=== PATIENT | female | born 1965 | race Caucasian/White ===

== ENCOUNTER → 2019-07-14 11:59 | Outpatient (CLI) | payer OTHER, SELFPAY ==
--- NOTE | 2019-07-14 | DI.MG.S_ITS ---
BILATERAL DIGITAL SCREENING MAMMOGRAM 3D/2D WITH CAD: 07/14/2019 CLINICAL: Routine screening. Family history of breast cancer. Comparison is made to exams dated: 04/15/2018 mammogram, 01/13/2017 mammogram, and 12/18/2015 mammogram - [facility]. The tissue of both breasts is heterogeneously dense. This may lower the sensitivity of mammography. Current study was also evaluated with a Computer Aided Detection (CAD) system. There are grouped calcifications in the superior lateral right breast at posterior depth that are stable to prior comparison exams dating back to 12/18/15, consistent with benignity. No significant masses, calcifications, or other findings are seen in either breast. There has been no significant interval change. IMPRESSION: There is no mammographic evidence of malignancy. A 1 year screening mammogram is recommended. This exam was interpreted at Station ID: [id number]. NOTE: For mammograms, a report in lay terms will be sent to the patient. Approximately 15% of breast malignancies will not be visualized mammographically. In the management of a palpable breast mass, a negative mammogram must not discourage biopsy of a clinically suspicious lesion. Electronically Signed By: Urbnao Zaman M.D. ecl/:07/14/2019 17:15:54 letter sent: Normal Exam ACR BI-RADS Category 2: Benign Finding(s) 3342F
== END ==
PROVIDERS: Visit Provider Naturopath
DX: Z12.31 Encounter for screening mammogram for malignant neoplasm of breast (principal); Z80.3 Family history of malignant neoplasm of breast
CPT/HCPCS: 77063; 77067

== ENCOUNTER → 2019-07-20 09:40 | Outpatient (CLI) | payer OTHER, SELFPAY ==
[2019-07-20 10:29] LABS: Add Manual Diff / Slide Review NO; Basophils Absolute Auto 100 /uL (0-100); Basophils Percent Auto 0.8 % (0-2); Eosinophils Absolute Auto 200 /uL (0-450); Eosinophils Percent Auto 3.5 % (2-4); Hematocrit 42.1 % (36-46); Hemoglobin 14.3 g/dL (12.0-16.0); Lymphocytes Absolute Auto 2400 /uL (1100-4500); Mean Corpuscular Hemoglobin 30.9 PG (26-34); Mean Corpuscular Volume 90.7 fL (80-100); Monocytes Absolute Auto 600 /uL (0-900); Monocytes Percent Auto 8.3 % (3-14); Neutrophils Absolute Auto 3700 /uL (1500-7000); Neutrophils Percent Auto 52.4 % (50-75); Platelet Count 372 X10^3/uL (150-400); Red Blood Cell Count 4.64 X10^6/uL (4.0-5.2); Red Cell Distribution Width 13.3 % (11.6-14.8)
[2019-07-20 11:01] LABS: Alanine Aminotransferase 14 IU/L (9-52); Albumin 4.4 g/dL (3.5-5.0); Albumin Globulin Ratio 1.6 (1.0-2.8); Alkaline Phosphatase 45 U/L (38-126); Aspartate Aminotransferase 31 IU/L (14-36); BUN Creatinine Ratio 18.3 (6-22); Bilirubin Total 0.6 mg/dL (0.2-1.3); Blood Urea Nitrogen 11 mg/dL (7-17); Calcium 9.5 mg/dL (8.4-10.2); Carbon Dioxide 28 mmol/L (22-32); Chloride 99 mmol/L (98-107); Cholesterol 236 mg/dL (140-199); Estimated Glomerular Filt Rate > 60.0 mL/min (>60); Globulin 2.7 g/dL (1.7-4.1); Glucose 79 mg/dL (70-100); HDL Cholesterol 85 mg/dL (40-60); HEMOLYSIS < 15 (0-50); LDL Cholesterol Calculated 137 mg/dL (<100); Sodium 133 mmol/L (137-145); Total Protein 7.1 g/dL (6.3-8.2); Triglycerides 70 mg/dL (35-150)
== END ==
PROVIDERS: Visit Provider Naturopath
DX: Z00.00 Encounter for general adult medical examination without abnormal findings (principal)
CPT/HCPCS: 80053; 80061; 85025

== ENCOUNTER → 2020-07-19 09:50 | Outpatient (CLI) | payer OTHER, SELFPAY ==
--- NOTE | 2020-07-19 | DI.MG.S_ITS ---
BILATERAL DIGITAL SCREENING MAMMOGRAM 3D/2D WITH CAD: 07/19/2020 CLINICAL: Routine screening. Family history of breast cancer. Comparison is made to exams dated: 07/14/2019 mammogram - [facility], 04/15/2018 mammogram, and 01/13/2017 mammogram - [facility]. The tissue of both breasts is heterogeneously dense. This may lower the sensitivity of mammography. Current study was also evaluated with a Computer Aided Detection (CAD) system. There is a focal asymmetry in the right breast at 12 o'clock posterior depth. There is a focal asymmetry in the left breast at 7 o'clock posterior depth. There also is a focal asymmetry in the left breast at 12 o'clock middle depth. No other significant masses or calcifications are seen in either breast. IMPRESSION: INCOMPLETE: NEEDS ADDITIONAL IMAGING EVALUATION The focal asymmetry in the right breast at 12 o'clock posterior depth is indeterminate. Additional views with possible ultrasound are recommended. The focal asymmetry in the left breast at 7 o'clock posterior depth is indeterminate. Additional views with possible ultrasound are recommended. The focal asymmetry in the left breast at 12 o'clock middle depth is indeterminate. Additional views with possible ultrasound are recommended. This exam was interpreted at Station ID: [id number]. NOTE: For mammograms, a report in lay terms will be sent to the patient. Approximately 15% of breast malignancies will not be visualized mammographically. In the management of a palpable breast mass, a negative mammogram must not discourage biopsy of a clinically suspicious lesion. Electronically Signed By: Natacha gallo/[email or web address]:07/19/2020 16:44:29 letter sent: Additional Imaging Needed ACR BI-RADS Category 0: Incomplete 3340F
[2020-07-19 12:10] LABS: Add Manual Diff / Slide Review NO; Basophils Absolute Auto 100 /uL (0-100); Basophils Percent Auto 0.9 % (0-2); Eosinophils Absolute Auto 200 /uL (0-450); Eosinophils Percent Auto 3.2 % (2-4); Hematocrit 40.5 % (36-46); Hemoglobin 13.8 g/dL (12.0-16.0); Lymphocytes Absolute Auto 2100 /uL (1100-4500); Lymphocytes Percent Auto 33.1 % (25-40); Mean Corpuscular HGB Conc 34.1 % (30-36); Mean Corpuscular Hemoglobin 30.7 PG (26-34); Monocytes Absolute Auto 500 /uL (0-900); Monocytes Percent Auto 7.4 % (3-14); Neutrophils Absolute Auto 3500 /uL (1500-7000); Neutrophils Percent Auto 55.4 % (50-75); Platelet Count 317 X10^3/uL (150-400); Red Cell Distribution Width 13.4 % (11.6-14.8); White Blood Cell Count 6.3 X10^3/uL (4.5-11.0)
[2020-07-19 12:20] LABS: Alanine Aminotransferase 15 IU/L (<35); Albumin 4.2 g/dL (3.5-5.0); Albumin Globulin Ratio 1.4 (1.0-2.8); Alkaline Phosphatase 54 U/L (38-126); Aspartate Aminotransferase 31 IU/L (14-36); BUN Creatinine Ratio 19.7 (6-22); Bilirubin Total 0.5 mg/dL (0.2-1.3); Blood Urea Nitrogen 12 mg/dL (7-17); Calcium 9.2 mg/dL (8.4-10.2); Carbon Dioxide 31 mmol/L (22-32); Chloride 102 mmol/L (98-107); Cholesterol 244 mg/dL (140-199); Estimated Glomerular Filt Rate > 60.0 mL/min (>60); Globulin 2.9 g/dL (1.7-4.1); Glucose 80 mg/dL (70-100); HDL Cholesterol 84 mg/dL (40-60); HEMOLYSIS < 15 (0-50); LDL Cholesterol Calculated 147 mg/dL (<100); Potassium 3.8 mmol/L (3.4-5.1); Sodium 136 mmol/L (137-145); Total Protein 7.1 g/dL (6.3-8.2); Triglycerides 66 mg/dL (35-150)
== END ==
PROVIDERS: PCP Naturopath; Referring Provider Naturopath; Visit Provider Naturopath
DX: Z12.31 Encounter for screening mammogram for malignant neoplasm of breast (principal); Z80.3 Family history of malignant neoplasm of breast; E78.00 Pure hypercholesterolemia, unspecified
CPT/HCPCS: 36415; 77063; 77067; 80053; 80061; 85025

== ENCOUNTER → 2022-05-16 08:27 | Outpatient (CLI) | payer OTHER, SELFPAY ==
[2022-05-16 09:45] LABS: Add Manual Diff / Slide Review NO; Basophils Absolute Auto 100 /uL (0-100); Basophils Percent Auto 1.2 % (0-2); Eosinophils Absolute Auto 400 /uL (0-450); Eosinophils Percent Auto 6.7 % (2-4); Hematocrit 40.5 % (36-46); Hemoglobin 14.1 g/dL (12.0-16.0); Lymphocytes Absolute Auto 1900 /uL (1100-4500); Mean Corpuscular HGB Conc 34.8 % (30-36); Mean Corpuscular Hemoglobin 31.5 PG (26-34); Mean Corpuscular Volume 90.6 fL (80-100); Monocytes Absolute Auto 600 /uL (0-900); Monocytes Percent Auto 8.9 % (3-14); Neutrophils Absolute Auto 3400 /uL (1500-7000); Neutrophils Percent Auto 53.2 % (50-75); Platelet Count 342 X10^3/uL (150-400); Red Blood Cell Count 4.47 X10^6/uL (4.0-5.2); Red Cell Distribution Width 13.5 % (11.6-14.8); White Blood Cell Count 6.3 X10^3/uL (4.5-11.0)
[2022-05-16 10:23] LABS: Alanine Aminotransferase 11 IU/L (<35); Albumin 4.4 g/dL (3.5-5.0); Albumin Globulin Ratio 1.8 (1.0-2.8); Alkaline Phosphatase 60 U/L (38-126); Aspartate Aminotransferase 27 IU/L (14-36); BUN Creatinine Ratio 17.9 (6-22); Bilirubin Total 0.4 mg/dL (0.2-1.3); Blood Urea Nitrogen 10 mg/dL (7-17); Calcium 9.4 mg/dL (8.4-10.2); Carbon Dioxide 30 mmol/L (22-32); Chloride 104 mmol/L (98-107); Cholesterol 200 mg/dL (140-199); Estimated Glomerular Filt Rate > 60 mL/min (>60); Globulin 2.5 g/dL (1.7-4.1); Glucose 81 mg/dL (70-100); HDL Cholesterol 72 mg/dL (40-60); HEMOLYSIS < 15 (0-50); LDL Cholesterol Calculated 112 mg/dL (<100); Potassium 4.8 mmol/L (3.4-5.1); Sodium 138 mmol/L (137-145); Total Protein 6.9 g/dL (6.3-8.2); Triglycerides 81 mg/dL (35-150)
== END ==
PROVIDERS: PCP Naturopath; Referring Provider Naturopath; Visit Provider Naturopath
DX: Z00.00 Encounter for general adult medical examination without abnormal findings (principal)
CPT/HCPCS: 36415; 80053; 80061; 85025

== ENCOUNTER → 2023-01-24 09:37 | Outpatient (CLI) | payer OTHER, SELFPAY | PROVIDERS: PCP Naturopath; Referring Provider Naturopath; Visit Provider Naturopath | DX: A09 Infectious gastroenteritis and colitis, unspecified (principal) | CPT/HCPCS: 87045; 87177; 87899 ==

== ENCOUNTER → 2023-02-13 09:48 | Outpatient (CLI) | payer OTHER, SELFPAY | PROVIDERS: PCP Naturopath; Referring Provider Naturopath; Visit Provider Naturopath | DX: A09 Infectious gastroenteritis and colitis, unspecified (principal) | CPT/HCPCS: 87045; 87329; 87899 ==

== ENCOUNTER 2023-10-03 18:22 | Emergency (ER) | payer OTHER, SELFPAY ==
[2023-10-03 18:32] VITALS: PULSE 106; RESP 24; O2SAT 99
[2023-10-03 18:35] VITALS: BP 141/85; PULSE 113; RESP 18; TEMP 36.9; O2SAT 98; BMI 22.3
--- NOTE | 2023-10-03 18:40 | DI.RAD.S_ITS ---
PROCEDURE: XR CHEST 1V INDICATIONS: chest pain TECHNIQUE: One view of the chest was acquired. COMPARISON: None. FINDINGS: Surgical changes and devices: None. Lungs and pleura: Left retrocardiac infiltrate and blunting of the left costophrenic angle. No pleural effusions or pneumothorax. Mediastinum: Mediastinal contours appear normal. Heart size is normal. Bones and chest wall: No suspicious bony lesions. Overlying soft tissues appear unremarkable. IMPRESSION: Left retrocardiac infiltrate. Dictated by: Chad Ann M.D. on 10/03/2023 at 19:28 Approved by: Chad Ann M.D. on 10/03/2023 at 19:31
[2023-10-03 19:00] VITALS: PULSE 96; RESP 28; O2SAT 99
[2023-10-03 19:08] LABS: Basophils Absolute Auto 100 /uL (0-100); Basophils Percent Auto 0.8 % (0-2); Eosinophils Absolute Auto 0 /uL (0-450); Eosinophils Percent Auto 0.3 % (2-4); Hematocrit 34.9 % (36-46); Hemoglobin 11.9 g/dL (12.0-16.0); Lymphocytes Absolute Auto 2000 /uL (1100-4500); Lymphocytes Percent Auto 13.5 % (25-40); Mean Corpuscular HGB Conc 34.2 % (30-36); Mean Corpuscular Volume 84.7 fL (80-100); Monocytes Absolute Auto 1400 /uL (0-900); Monocytes Percent Auto 9.6 % (3-14); Neutrophils Absolute Auto 10900 /uL (1500-7000); Neutrophils Percent Auto 75.8 % (50-75); Red Blood Cell Count 4.12 X10^6/uL (4.0-5.2); Red Cell Distribution Width 14.4 % (11.6-14.8); White Blood Cell Count 14.5 X10^3/uL (4.5-11.0)
[2023-10-03 19:14] LABS: Add Manual Diff / Slide Review SLIDE REVIEW; INR 1.2 (0.9-1.3); Prothrombin Time 13.4 SECONDS (9.4-12.5)
[2023-10-03 19:16] LABS: PTT Partial Thromboplastin Tim 25 SECONDS (25.1-36.5)
[2023-10-03 19:19] LABS: Alanine Aminotransferase 25 IU/L (<35); Albumin 3.9 g/dL (3.5-5.0); Albumin Globulin Ratio 1.1 (1.0-2.8); Alkaline Phosphatase 58 U/L (38-126); Aspartate Aminotransferase 35 IU/L (14-36); BUN Creatinine Ratio 10.5 (6-22); Bilirubin Total 0.7 mg/dL (0.2-1.3); Blood Urea Nitrogen 6 mg/dL (7-17); Calcium 9.2 mg/dL (8.4-10.2); Carbon Dioxide 26 mmol/L (22-32); Chloride 96 mmol/L (98-107); Creatine Kinase 51 U/L (30-135); Estimated Glomerular Filt Rate > 60 mL/min (>60); Globulin 3.5 g/dL (1.7-4.1); Glucose 135 mg/dL (70-100); HEMOLYSIS 29 (0-50); Lipase 32 U/L (23-300); Magnesium 1.9 mg/dL (1.6-2.3); Potassium 4.3 mmol/L (3.4-5.1); Sodium 129 mmol/L (137-145); Total Protein 7.4 g/dL (6.3-8.2)
[2023-10-03 19:23] LABS: Influenza A - CEPHEID Flu A NEGATIVE (NEGATIVE); Influenza B - CEPHEID Flu B NEGATIVE (NEGATIVE); Respiratory Syncytial Virus Negative (Negative)
[2023-10-03 19:25] LABS: COVID-19 CEPHEID 4-PLEX PCR POSITIVE (Negative)
[2023-10-03 19:26] LABS: D Dimer 1298 ng/ml (<500)
[2023-10-03 19:30] VITALS: PULSE 106; RESP 32; O2SAT 99
[2023-10-03 19:30] LABS: Troponin I < 0.012 ng/mL (0.01-0.034)
[2023-10-03 19:33] VITALS: BP 140/87; PULSE 100; RESP 32; O2SAT 99
[2023-10-03 19:34] LABS: Platelet Count 348 X10^3/uL (150-400)
[2023-10-03 19:35] LABS: RBC Morphology Normal Morphology
--- NOTE | 2023-10-03 19:58 | ED_ITS ---
HPI - General Adult General Chief complaint: Upper Respiratory Symptoms Stated complaint: Sent by [facility], [place] to take breath Time Seen by Provider: 10/03/23 18:40 Source: patient Mode of arrival: Ambulatory History of Present Illness HPI narrative: 58-year-old woman presents after developing a temperature and slight dyspnea over the last 48 hours. Her has also been feeling unwell. She does not describe a cough. She notes a headache and some neck pain but not complaining of significant nasal fullness. She is not having chest pain or palpitations, no abdominal pain nausea or vomiting. No lower extremity edema Related Data Previous Rx's Medication Instructions Recorded mupirocin 2 % topical ointment 1 applic topical BID #22 grams 04/13/22 azithromycin 250 mg tablet See Rx Instructions PO .COMPLEX #6 10/03/23 tabs Allergies Allergy/AdvReac Type Severity Reaction Status Date / Time No Known Drug Allergies Allergy Verified 10/03/23 18:35 Review of Systems Review of Systems Narrative: Pertinent positive and negative findings as per HPI Patient History Social History Smoking Status: Never smoker Smoking Status: Never smoker alcohol intake frequency: holidays/special occasions only Substance Use Type: does not use Exam Initial Vital Signs Initial Vital Signs: Vital Signs Pulse Rate 106 H 10/03/23 18:32 Respiratory Rate 24 10/03/23 18:32 Pulse Oximetry 99 10/03/23 18:32 General: Healthy appearing, in no acute distress. Able to give a complete and coherent history. Well-nourished well-developed HEENT: Moist mucous membranes, normal sclera with reactive pupils, Neck: No JVD, no cervical adenopathy Respiratory: Lungs are clear to auscultation, no wheezing no rales no rhonchi. Full and symmetrical air movement Cardiac: Regular rate and rhythm no murmurs no bruits Abdomen: Soft, nontender, good bowel tones, no flank pain Skin: Warm and dry, no rashes Neurologic: Grossly neurologically intact with no obvious asymmetries or abnormalities Psych: Cooperative, appropriate insight and affect Course Orders Ordered: ED Orders 10/03/23 18:30 Covid-19 + FLU A/B + RSV - PCR Stat 10/03/23 18:40 XR chest 1V Stat EKG-12 Lead Stat 10/03/23 18:45 Complete Blood Count AUTO DIFF Stat Comprehensive Metabolic Panel Stat D Dimer Stat Lipase Stat Magnesium Stat PTT Partial Thromboplastin Naresh Stat Prothrombin Time INR Stat Troponin & CK Cardiac Panel Stat Vital Signs Vital signs: Vital Signs - 8 hr 10/03/23 18:32 10/03/23 18:35 10/03/23 19:00 Temperature 98.5 F Pulse Rate 106 H 113 H 96 H Respiratory Rate 24 18 28 H Blood Pressure 141/85 H Pulse Oximetry 99 98 99 Oxygen Delivery Method Room Air 10/03/23 19:30 10/03/23 19:33 10/03/23 19:33 Temperature Pulse Rate 106 H 100 H Respiratory Rate 32 H 32 H Blood Pressure 140/87 Pulse Oximetry 99 99 Oxygen Delivery Method Room Air Medical Decision Making Lab Data 10/03/23 18:45 10/03/23 18:45 Labs: Lab Results 10/03/23 10/03/23 Range/Units 18:30 18:45 WBC 14.5 H (4.5-11.0) X10^3/uL RBC 4.12 (4.0-5.2) X10^6/uL Hgb 11.9 L (12.0-16.0) g/dL Hct 34.9 L (36-46) % MCV 84.7 (80-100) fL MCH 29.0 (26-34) PG MCHC 34.2 (30-36) % RDW 14.4 (11.6-14.8) % Plt Count 348 (150-400) X10^3/uL Neut % (Auto) 75.8 H (50-75) % Lymph % (Auto) 13.5 L (25-40) % [place] % (Auto) 9.6 (3-14) % Eos % (Auto) 0.3 L (2-4) % Baso % (Auto) 0.8 (0-2) % Neut # (Auto) 73256 H (0285-6665) /uL Lymph # (Auto) 2000 (5742-1841) /uL [place] # (Auto) 1400 H (0-900) /uL Eos # (Auto) 0 (0-450) /uL Baso # (Auto) 100 (0-100) /uL Clumped Platelets RBC Morphology Normal morphology PT 13.4 H (9.4-12.5) SECONDS INR 1.2 (0.9-1.3) APTT 25 L (25.1-36.5) SECONDS D-Dimer 1298 H (<500) ng/ml Sodium 129 L (137-145) mmol/L Potassium 4.3 (3.4-5.1) mmol/L Chloride 96 L (98-107) mmol/L Carbon Dioxide 26 (22-32) mmol/L BUN 6 L (7-17) mg/dL Creatinine 0.57 (0.52-1.04) mg/dL Estimated GFR > 60 (>60) mL/min BUN/Creatinine Ratio 10.5 (6-22) Glucose 135 H (70-100) mg/dL Calcium 9.2 (8.4-10.2) mg/dL Magnesium 1.9 (1.6-2.3) mg/dL Total Bilirubin 0.7 (0.2-1.3) mg/dL AST 35 (14-36) IU/L ALT 25 (<35) IU/L Alkaline Phosphatase 58 (38-126) U/L Total Creatine Kinase 51 (30-135) U/L Troponin I < 0.012 (0.01-0.034) ng/mL Total Protein 7.4 (6.3-8.2) g/dL Albumin 3.9 (3.5-5.0) g/dL Globulin 3.5 (1.7-4.1) g/dL Albumin/Globulin Ratio 1.1 (1.0-2.8) Lipase 32 (23-300) U/L SARS-CoV-2 (PCR) Positive H (Negative) Influenza A (RT-PCR) Flu a negative (NEGATIVE) Influenza B (RT-PCR) Flu b negative (NEGATIVE) RSV (PCR) Negative (Negative) MDM Narrative Medical decision making narrative: CC: Fever and dyspnea for 48 hours Data collected from: patient Differential considered: Viral syndrome, pneumonia, pulmonary embolism, acute coronary syndrome Exam documented above, pertinent findings include: Exam is entirely benign. There were initially some diminished breath sounds on the right base that cleared with deep breathing. Lab Test results independently reviewed as above. Pertinent findings: CBC demonstrates mild leukocytosis at 11.9 without significant left shift Chemistries show hyponatremia at 1:29 a.m. with normal renal function liver studies are unremarkable Troponin is undetectable COVID test is positive Independently reviewed EKG: Sinus tachycardia at a rate of 103. Normal intervals, normal axis Imaging studies independently reviewed: Chest x-ray shows a left retrocardiac infiltrate. I am not appreciating clinical correlation when auscultating lungs Discussion: 58-year-old woman with fever and dyspnea for 48 hours. COVID test is positive. She is mildly tachypneic heart rate is at 100, she is not currently febrile. Exam is reassuring. Labs are equally reassuring. With the chest x-ray I suspect that the retrocardiac infiltrate is more atelectasis. We did discuss the findings on chest x-ray and likelihood that this is not a bacterial infiltrate. At this point we will treat this as viral and are related to COVID with symptomatic management and plenty of rest. Reviewed indications for beginning antibiotics including persistent fevers in the 102-103 range and cough with productive sputum. At this point without cough I do not think that antibiotics are appropriate. 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 She will be given a prescription, written, of azithromycin to use should she develop a productive cough or increasing fevers. She will otherwise not be filling the prescription. Questions are answered she is safe for discharge Discharge Plan Departure Patient Disposition: Home Clinical Impression: COVID-19 Instructions: COVID-19 Activity Restrictions/Additional Instructions: Thank you for coming in today You do have COVID and that explains the majority of your symptoms. Unfortunately, this simply needs to run its course and requires ibuprofen and Tylenol for headaches and fevers, cough medicine if you do begin coughing and plenty of rest. On your chest x-ray in the left base there were some minor abnormalities that I suspect are your lungs not being completely expanded as you have been taking deep breaths. The possibility of pneumonia is there however without a productive cough a bacterial pneumonia is far less likely. If this is a bacterial pneumonia I would expect you to have high fevers in the 102-103 range over the next couple of days and develop a productive cough. Should that happen, please feel the prescription for azithromycin and complete the course of antibiotics. In the absence of those symptoms with the fevers, malaise headaches and just general shortness of breath, this is all viral and will not benefit from antibiotics. If you find that you are getting worse or develop any new symptoms, please feel free to return to the emergency department for further evaluation. Prescriptions: New azithromycin 250 mg tablet See Rx Instructions .ROUTE .COMPLEX Qty: 6 0RF Rx Instructions: For 250 mg dose pack: take 500 mg today (day 1), then 250 mg for 4 days (days 2-5) No Action mupirocin 2 % ointment 1 applic topical BID Qty: 22 0RF Rx Instructions: apply to affected area Referrals: Jose Rome MD [Primary Care Provider] - Stand Alone Forms: Patient Portal/API
[2023-10-03 20:30] VITALS: BP 138/84; PULSE 100; RESP 25; O2SAT 98
== END 2023-10-03 20:43 | disposition home or self-care (01) ==
PROVIDERS: Emergency Provider Emergency Medicine; PCP Family Medicine
DX: U07.1 COVID-19 (principal); R07.9 Chest pain, unspecified
CPT/HCPCS: 0241U; 36415; 71045; 80053; 82550; 83690; 83735; 84484; 85025; 85379; 85610; 85730; 93005; 99284